=== PATIENT | male | born 1980 | race Two or more races ===

== ENCOUNTER 2020-12-25 09:48 | Emergency (ER) | payer SELFPAY ==
[~2020-12-25] VITALS: Ht 172.7 cm; Wt 72.7 kg
[2020-12-25 12:29] LABS: BARBITURATES NEG (NEG); BENZODIAZEPINES NEG (NEG); CANNABINOIDS NEG (NEG); COCAINE POS (NEG); METHADONE NEG (NEG); OPIATES NEG (NEG); PHENCYCLIDINE NEG (NEG)
[2020-12-25 12:31] LABS: AMPHETAMINE/METHAMPHETAMINE NEG (NEG)
[2020-12-25 13:00] VITALS: BP 137/67
--- NOTE | 2020-12-25 13:02 | PHYS DOC ---
Past Medical History Past Medical History: No Pertinent History ([employer]) Past Surgical History: No Surgical History ([employer]) Smoking Status: Never Smoker Alcohol Use: Rarely Social History Narrative: SMOKES COCAINE ([employer]) General Adult EDM: Chief Complaint: DRUG ABUSE HPI: HPI: Patient is a 40 year old male speaking [place] presenting today requesting detox, patient reports using cocaine for 6 months. 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 [] GI: Denies abdominal pain, nausea, vomiting, bloody stools or diarrhea. [] : Denies dysuria. [] Musculoskeletal: Denies back pain or joint pain. [] Integument: Denies rash. [] Neurologic: Denies headache, focal weakness or sensory changes. [] Endocrine: Denies polyuria or polydipsia. [] Lymphatic: Denies swollen glands. [] Psychiatric: Requesting detox for cocaine use ([employer]) Heart Score: C/O Chest Pain: N/A Risk Factors: Risk Factors: DM, Current or recent (<one month) smoker, HTN, HLP, family history of CAD, obesity. Risk Scores: Score 0 - 3: 2.5% MACE over next 6 weeks - Discharge Home Score 4 - 6: 20.3% MACE over next 6 weeks - Admit for Clinical Observation Score 7 - 10: 72.7% MACE over next 6 weeks - Early Invasive Strategies ([employer]) Allergies: Allergies: Allergies Coded Allergies Type Severity Reaction Last Updated Verified No Known Drug Allergies 12/25/20 No ([employer]) Physical Exam: PE: Constitutional: Well developed, well nourished, no acute distress, non-toxic appearance. [] HENT: Normocephalic, atraumatic, bilateral external ears normal, oropharynx moist, no oral exudates, nose normal. [] Eyes: PERRLA, EOMI, conjunctiva normal, no discharge. [] Neck: Normal range of motion, no tenderness, supple, no stridor. [] Cardiovascular:Heart rate regular rhythm, no murmur [] Lungs & Thorax: Bilateral breath sounds clear to auscultation [] Abdomen: Bowel sounds normal, soft, no tenderness, no masses, no pulsatile masses. [] Skin: Warm, dry, no erythema, no rash. [] Back: No tenderness, no CVA tenderness. [] Extremities: No tenderness, no cyanosis, no clubbing, ROM intact, no edema. [] Neurologic: Alert and oriented X 3, normal motor function, normal sensory function, no focal deficits noted. [] Psychologic: Affect normal, judgement normal, mood normal. [] (SHANEKA SANTILLAN APRN) Current Patient Data: Labs: Laboratory Tests Test 12/25/20 12:13 Urine Opiates Screen Neg (NEG) Urine Methadone Screen Neg (NEG) Urine Barbiturates Neg (NEG) Urine Phencyclidine Screen Neg (NEG) Urine Amphetamine/Methamphetamine Neg (NEG) Urine Benzodiazepines Screen Neg (NEG) Urine Cocaine Screen Pos (NEG) Urine Cannabinoids Screen Neg (NEG) Urine Ethyl Alcohol Neg (NEG) Vital Signs: Vital Signs Date Time Temp Pulse Resp B/P (MAP) Pulse Ox O2 Delivery O2 Flow Rate FiO2 12/25/20 11:03 98.2 67 16 163/87 (112) 99 Room Air 98.2 (SHANEKA SANTILLAN APRN) EKG: EKG: [] (SHANEKA SANTILLAN APRN) Radiology/Procedures: Radiology/Procedures: [] (SHANEKA SANTILLAN APRN) Course & Med Decision Making: Course & Med Decision Making Pertinent Labs and Imaging studies reviewed. (See chart for details) This is a 40-year-old male patient presenting to the ED today requesting detox for cocaine use. Diane from the pat team arrange for patient to go to [facility] today. (SHANEKA SANTILLAN APRN) Dragon Disclaimer: Dragon Disclaimer: This electronic medical record was generated, in whole or in part, using a voice recognition dictation system. (SHANEKA SANTILLAN APRN) Departure Departure Impression: Primary Impression: Cocaine abuse Disposition: 01 HOME / SELF CARE / HOMELESS Condition: STABLE Referrals: NO PCP (PCP) please head to [facility]. Patient Instructions: Cocaine Abuse-Brief Additional Instructions: please head to [facility] Attending Signature Attending Signature I have participated in the care of this patient and I have reviewed and agree with all pertinent clinical information above including history, exam, and recommendations. (MARILYN LU DO) SHANEKA SANTILLAN APRN December 25, 2020 13:02 MARILYN LU DO December 25, 2020 17:40
== END 2020-12-25 14:08 | disposition home or self-care (01) ==
LOC: ER 09:48
DX: F14.10 Cocaine abuse, uncomplicated (principal)
CPT/HCPCS: 80307; 99283